=== PATIENT | female | born 1985 | race Two or more races ===

== ENCOUNTER 2017-12-23 20:20 | Emergency (ER) | payer BC, OTHER ==
[~2017-12-23] VITALS: Ht 167.6 cm; Wt 52.2 kg
[2017-12-23] MEDS ORDERED: ONDANSETRON HCL/PF 4 MG/2 ML VIAL ONE (20:45)
--- NOTE | 2017-12-23 20:54 | NUR ---
[facility] 878 C/C MID EPIGASTRIC PAIN X7 DAYS NON RADIATING WITH N/V/D, STS " I HAVE PANCREATITIS ". PT EVAL'D BY NADJA MCKOY.
[2017-12-23 20:57] LABS: BASOPHILS % (AUTO) 1.3 % (0.0-2.0); EOSINOPHILS % (AUTO) 0.2 % (0.0-6.0); HEMATOCRIT 39 % (33-45); HEMOGLOBIN 13.4 g/dL (11.5-14.8); LYMPHOCYTES % (AUTO) 28.6 % (20.0-44.0); MEAN CORPUSCULAR HEMOGLOBIN 32 PG (26.0-33.0); MEAN CORPUSCULAR HGB CONC 34 g/dl (31.0-36.0); MEAN CORPUSCULAR VOLUME 94 fL (82-100); MONOCYTES # (AUTO) 0.4 /CMM (0.1-1.30); MONOCYTES % (AUTO) 10.4 % (2.0-12.0); NEUTROPHILS % (AUTO) 59.5 % (43.0-81.0); PLATELET COUNT (AUTO) 129 /CMM (150-450); RED BLOOD CELL COUNT(AUTO) 4.19 MIL/uL (4.0-5.2); WHITE BLOOD COUNT (AUTO) 3.4 K/uL (4.3-11.0)
[2017-12-23] MEDS ORDERED: ONDANSETRON HCL/PF 4 MG/2 ML VIAL IVP ONE (21:00)
[2017-12-23] MEDS ORDERED: IV NS 0.9% 1,000 ML BAG IV ONE (21:00)
[2017-12-23 21:05] LABS: INR 1.03 (0.85-1.15)
[2017-12-23 21:07] LABS: ALBUMIN 4.2 g/dL (3.4-5.0); BILIRUBIN,DIRECT 0.1 mg/dL (0.0-0.2); BILIRUBIN,TOTAL 0.4 mg/dL (0.2-1.0); CALCIUM, SERUM 8.9 mg/dL (8.5-10.1); CREATININE 0.6 mg/dL (0.6-1.3); TOTAL PROTEIN, SERUM 8.5 g/dL (6.4-8.2)
[2017-12-23 21:08] LABS: POTASSIUM 2.7 mmol/L (3.5-5.1)
[2017-12-23] MEDS ORDERED: POTASSIUM CHLORIDE 20 MEQ TAB.PRT.SR PO ONE ×2 (21:30→21:57)
[2017-12-23] MEDS ORDERED: POTASSIUM CL. PREMIX PERIPHER. 0 ML ONE (21:56)
[2017-12-23] MEDS ORDERED: FAMOTIDINE/PF INJ 20 MG/2 ML VIAL IV ONE ×2 (22:00→22:12)
[2017-12-23] MEDS: POTASSIUM CL. PREMIX PERIPHER. 50 ML IV SCH ×2 (22:11→22:30)
[2017-12-23 22:18] VITALS: BP 122/83
--- NOTE | 2017-12-23 22:19 | NUR ---
EKG DONE. NSR NO ECTOPY NOTED. MEDICATED FOR LOW K, PT KEVIN WELL. DENIES CP, SOB, N/V/D @ THIS TIME. WILL CONT TO MONITOR.
[2017-12-23] MEDS ORDERED: POTASSIUM CL. PREMIX PERIPHER. 50 ML ONE (23:33)
--- NOTE | 2017-12-23 23:44 | NUR ---
PT ELOPED, PT REMOVED SL ON LAC. TOYINII, SERVICES MANAGER AWARE.
== END 2017-12-23 23:44 | disposition left against medical advice (07) ==
LOC: ER 20:22
DX: K29.20 Alcoholic gastritis without bleeding (principal); F17.200 Nicotine dependence, unspecified, uncomplicated; E87.6 Hypokalemia; Y90.8 Blood alcohol level of 240 mg/100 ml or more
CPT/HCPCS: 36415; 80048; 80076; 83690; 85025; 85730; 93005; 96361; 96374; 96375; 99285; 99406; A4606; G0480; J2405; J3480; J3490; J7030 ×2; Z7610

== ENCOUNTER 2017-12-24 17:48 | Emergency (ER) | payer MEDICAID, OTHER ==
[~2017-12-24] VITALS: Ht 167.6 cm; Wt 57.2 kg
--- NOTE | 2017-12-24 17:50 | NUR ---
BIB [facility], UNWITNESSED FALL IN THE SHOWER, SEEN HERE YESTERDAY FOR ALCOHOLIC GASTRITIS NAD NOTED, VSS, RESP EVEN AND UNLABORED, PT WAS PUT ON MONITOR. AT BS.
[2017-12-24] MEDS ORDERED: POTASSIUM CHLORIDE 20 MEQ TAB.PRT.SR PO ONE ×2 (18:23→18:30)
[2017-12-24 18:27] LABS: BASOPHILS % (AUTO) 1.2 % (0.0-2.0); EOSINOPHILS % (AUTO) 0.2 % (0.0-6.0); HEMATOCRIT 37 % (33-45); HEMOGLOBIN 12.8 g/dL (11.5-14.8); LYMPHOCYTES # (AUTO) 0.8 /CMM (0.8-4.8); LYMPHOCYTES % (AUTO) 25.3 % (20.0-44.0); MEAN CORPUSCULAR HEMOGLOBIN 32 PG (26.0-33.0); MEAN CORPUSCULAR HGB CONC 34 g/dl (31.0-36.0); MEAN CORPUSCULAR VOLUME 93 fL (82-100); MONOCYTES # (AUTO) 0.3 /CMM (0.1-1.30); MONOCYTES % (AUTO) 8.8 % (2.0-12.0); NEUTROPHILS # (AUTO) 2.2 /CMM (1.8-8.9); NEUTROPHILS % (AUTO) 64.5 % (43.0-81.0); PLATELET COUNT (AUTO) 122 /CMM (150-450); WHITE BLOOD COUNT (AUTO) 3.3 K/uL (4.3-11.0)
[2017-12-24] MEDS ORDERED: IV NS 0.9% 500 ML BAG IV ONE (18:30)
[2017-12-24 18:42] LABS: CALCIUM, SERUM 8.8 mg/dL (8.5-10.1); CREATININE 0.6 mg/dL (0.6-1.3); POTASSIUM 3.1 mmol/L (3.5-5.1)
--- NOTE | 2017-12-24 19:10 | NUR ---
REPORT RECEIVED FROM SIENNA PERAZA FOR [facility].
[2017-12-24] MEDS ORDERED: LEVETIRACETAM (500MG) 1,000 MG in IV NS 0.9% 100 ML IV SCH (20:00)
--- NOTE | 2017-12-24 20:51 | NUR ---
IV removed. Catheter intact and site benign. Pressure and 4x4 applied to site. No bleeding noted.Patient discharged to home in stable condition. Written and verbal after care instructions given. Patient verbalizes understanding of instruction. Patient is awake and alert to self, day, and place. Patient ambulatory with a steady gait.
[2017-12-24 20:52] VITALS: BP 123/88
== END 2017-12-24 20:53 | disposition home or self-care (01) ==
LOC: ER 17:50
DX: G40.909 Epilepsy, unspecified, not intractable, without status epilepticus (principal); G89.29 Other chronic pain; K29.20 Alcoholic gastritis without bleeding; F10.10 Alcohol abuse, uncomplicated; R10.13 Epigastric pain; M25.551 Pain in right hip; Z60.2 Problems related to living alone
CPT/HCPCS: 36415; 70450; 73502; 80048; 84703; 85025; 96365; 99285; A4606 ×2; J1953; J7030; J7040; Z7610 ×2

== ENCOUNTER 2018-04-16 02:26 | Emergency (ER) | payer OTHER, MEDICAID ==
[~2018-04-16] VITALS: Ht 167.6 cm; Wt 49.9 kg
--- NOTE | 2018-04-16 02:45 | NUR ---
Pt BIBSELF FROM HOME C/O +N/V/D FOR THE PAST 2-3 HOURS AFTER EATING AN OLD MAC N CHEESE LEFT IN THE FREEZER FOR DINNER AROUND 2200. Pt STATES GENERALIZED ABD PAIN 12/24. DENIES DYSURIA. Pt IS AFEBRILE. Pt IS A/OX4, VERBAL, ABLE TO MAKE NEEDS KNOWN. VS STABLE. NO S/S OF ACUTE DISTRESS OR SOB NOTED. Pt WAITING IN BED. WAITING FOR MD ORDERS.
[2018-04-16 02:50] VITALS: BP 120/77
[2018-04-16] MEDS ORDERED: ONDANSETRON HCL/PF 4 MG/2 ML VIAL ONE (02:58)
[2018-04-16] MEDS ORDERED: ONDANSETRON HCL/PF 4 MG/2 ML VIAL IVP ONE (03:00)
[2018-04-16] MEDS ORDERED: IV NS 0.9% 1,000 ML BAG IV ONE (03:00)
--- NOTE | 2018-04-16 03:36 | NUR ---
IV ACCESS STARTED ON LAC #22G
--- NOTE | 2018-04-16 03:36 | NUR ---
ADMINISTERED ZOFRAN 4MG IV ON LAC #22G. STARTED Pt ON IVF NS
[2018-04-16] MEDS ORDERED: DICYCLOMINE HCL INJ 20 MG/2 ML AMPUL IM ONE ×2 (04:00→04:17)
--- NOTE | 2018-04-16 04:26 | NUR ---
ADMINISTERED BENTYL 10MG IM ON RT DELTOID
--- NOTE | 2018-04-16 05:00 | NUR ---
Pt LEFT FACILITY PRIOR TO SIGNING DISCHARGE PAPERS. BEFORE LEFT FACILITY, Pt REMOVED IV ACCESS HERSELF. IV #22G WAS FOUND ATTCHED TO IVF TUBING. NO SIGNS OF BLEEDING WAS NOTED. BANDAGE WAS APPLIED TO AREA. Pt INSISTED ON LEAVING AND DID NOT WANT TO LISTEN TO THE STAFF AND WALKED OUT OF THE FACILITY. Pt LEFT ON FOOT WITH STEADY GAIT. NO S/S OF ACUTE DISTRESS OR SOB NOTED.
== END 2018-04-16 05:00 | disposition left against medical advice (07) ==
LOC: ER 02:30
DX: R11.2 Nausea with vomiting, unspecified (principal); R19.7 Diarrhea, unspecified; K29.20 Alcoholic gastritis without bleeding; F10.10 Alcohol abuse, uncomplicated; F31.9 Bipolar disorder, unspecified; Y90.9 Presence of alcohol in blood, level not specified; Z90.89 Acquired absence of other organs; Z60.2 Problems related to living alone; Z76.5 Malingerer [conscious simulation]
CPT/HCPCS: A4606; J0500; J2405; J7030; Z7610

== ENCOUNTER 2018-07-04 12:36 | Emergency (ER) | payer OTHER, MEDICAID ==
[~2018-07-04] VITALS: Ht 167.6 cm; Wt 49.9 kg
[2018-07-04 12:36] VITALS: BP 109/65
--- NOTE | 2018-07-04 12:36 | NUR ---
BBSELF FROM HOME FOR RT ARM PAIN; PT AAXO4, PT ON MONITOR, NAD NOTED, VSS, PENDING ER PROVIDER ROBERTOAL
[2018-07-04] MEDS ORDERED: ACETAMINOPHEN 325 MG TABLET PO ONE (13:00)
[2018-07-04] MEDS ORDERED: IV NS 0.9% 1,000 ML BAG IV ONE (13:00)
[2018-07-04] MEDS ORDERED: ACETAMINOPHEN ES 500 MG TABLET ONE (13:08)
[2018-07-04 13:14] LABS: BASOPHILS % (AUTO) 0.4 % (0.0-2.0); EOSINOPHILS % (AUTO) 0.1 % (0.0-6.0); HEMATOCRIT 43 % (33-45); HEMOGLOBIN 14.4 g/dL (11.5-14.8); LYMPHOCYTES # (AUTO) 1.6 /CMM (0.8-4.8); MEAN CORPUSCULAR HGB CONC 33 g/dl (31.0-36.0); MEAN CORPUSCULAR VOLUME 93 fL (82-100); MONOCYTES % (AUTO) 9.5 % (2.0-12.0); NEUTROPHILS # (AUTO) 7.9 /CMM (1.8-8.9); PLATELET COUNT (AUTO) 310 /CMM (150-450); RED BLOOD CELL COUNT(AUTO) 4.66 MIL/uL (4.0-5.2); WHITE BLOOD COUNT (AUTO) 10.5 K/uL (4.3-11.0)
[2018-07-04 13:22] LABS: CALCIUM, SERUM 9.3 mg/dL (8.5-10.1); CREATININE 0.7 mg/dL (0.6-1.3); POTASSIUM 3.1 mmol/L (3.5-5.1)
[2018-07-04 13:28] LABS: ALBUMIN 3.3 g/dL (3.4-5.0); BILIRUBIN,DIRECT 0.1 mg/dL (0.0-0.2); BILIRUBIN,TOTAL 0.5 mg/dL (0.2-1.0); TOTAL PROTEIN, SERUM 8.4 g/dL (6.4-8.2)
[2018-07-04] MEDS ORDERED: POTASSIUM CHLORIDE 20 MEQ TAB.PRT.SR PO ONE ×2 (13:30→13:39)
[2018-07-04] MEDS ORDERED: HYDROCODONE/APAP 5/325MG 1 EACH TABLET PO ONE (14:00)
[2018-07-04] MEDS ORDERED: SULFAMETH/TRIMETH 800/160 MG 1 UDTAB TABLET PO ONE ×2 (14:00→14:03)
[2018-07-04] MEDS ORDERED: CEPHALEXIN MONOHYDRATE 500 MG CAPSULE PO ONE ×2 (14:00→14:02)
[2018-07-04] MEDS ORDERED: HYDROCODONE/APAP 5/325MG 1 EACH TABLET ONE (14:02)
--- NOTE | 2018-07-04 14:16 | NUR ---
Patient discharged to home in stable condition. Written and verbal after care instructions given. Patient verbalizes understanding of instruction. IV removed. Catheter intact and site benign. Pressure and 4x4 applied to site. No bleeding noted.
== END 2018-07-04 14:17 | disposition home or self-care (01) ==
LOC: ER 12:36
DX: L02.511 Cutaneous abscess of right hand (principal); F31.9 Bipolar disorder, unspecified; E87.6 Hypokalemia; R00.0 Tachycardia, unspecified; Z90.89 Acquired absence of other organs; Z60.2 Problems related to living alone
CPT/HCPCS: 36415; 80048-TC; 80076-TC; 85025-TC; 93971-TC; J7030

== ENCOUNTER 2018-07-10 19:28 | Emergency (ER) | payer OTHER, MEDICAID | END 2018-07-10 19:49 | disposition left against medical advice (07) | LOC: ER 19:30 | DX: Z53.21 Procedure and treatment not carried out due to patient leaving prior to being seen by health care provider (principal) ==

== ENCOUNTER 2019-02-03 19:08 | Emergency (ER) | payer OTHER, MEDICAID ==
[~2019-02-03] VITALS: Ht 167.6 cm; Wt 49.9 kg
--- NOTE | 2019-02-03 19:15 | NUR ---
PT [facility] FOR HEROIN OVERDOSE. PT WAS GIVEN 4MG NARCAN INTRANASAL IN THE FIELD. PT AOX4. NAD NOTED. RESP EVEN AND UNLABORED. PT IN BED 11. WILL CONTINUE TO MONITOR.
[2019-02-03 19:48] VITALS: BP 100/66
--- NOTE | 2019-02-03 20:02 | NUR ---
FRIEND AT BEDSIDE
== END 2019-02-03 21:02 | disposition home or self-care (01) ==
LOC: ER 19:12
DX: T40.1X1A Poisoning by heroin, accidental (unintentional), initial encounter (principal); Y92.89 Other specified places as the place of occurrence of the external cause; F31.9 Bipolar disorder, unspecified; F10.10 Alcohol abuse, uncomplicated; Y90.9 Presence of alcohol in blood, level not specified; Z90.89 Acquired absence of other organs